=== PATIENT | male | born 1960 | race Caucasian/White ===

== ENCOUNTER 2019-07-31 21:10 | Emergency (ER) | payer BC ==
[2019-07-31] MEDS: Sodium Chloride 0.9% 10 ML Syringe FLUSH PRN ×3 (21:50→23:09)
[2019-07-31] MEDS ORDERED: Ondansetron 4 MG/2 ML SDV IVPUSH ONE (21:55)
[2019-07-31] MEDS ORDERED: fentaNYL 100 MCG/2 ML SDV IVPUSH ONE (21:55)
[2019-07-31 22:02] LABS: CHLORIDE,CL 103 mmol/L (98-107); SODIUM,NA 137 mmol/L (136-145)
[2019-07-31] MEDS ORDERED: methylPREDNISolone Sodium Succinate 125 MG/2 ML SDV IVPUSH ONE (22:30)
[2019-07-31] MEDS ORDERED: Ketorolac 30 MG/ML SDV IVPUSH ONE (22:31)
[2019-07-31] MEDS ORDERED: HYDROmorphone 1 MG/ML Syringe IVPUSH ONE (22:37)
--- NOTE | 2019-07-31 22:38 | EDM.PDOC ---
ED HPI GENERAL MEDICAL PROBLEM - General Chief Complaint: General Stated Complaint: CHEST WALL PAIN Time Seen by Provider: 07/31/19 21:43 Source of Information: Reports: Patient History Limitations: Reports: No Limitations - History of Present Illness INITIAL COMMENTS - FREE TEXT/NARRATIVE: Patient comes to ER with initial complaint of anterior chest wall pain just lateral to sternum on left that started suddenly while he was working on a tractor changing oil. Pain is 8/10. No history of similar pain. Denies injuries/popping sound. Shortly after arrival told nurse that he noticed increasing back pain in thoracic region. He says that he has been having issues with thoracic back pain for some time (months) without history of specific injury in same area. This feels worse than it has before. No other accompanying symptoms. Breathing makes pain worse as does movement/turning head. Denies feeling SOB however. No recent illnesses. Heent negative for acute changes/URI complaints/headache Resp negative for cough/wheeze/sob/sputum production CV+ for complaint of chest pain adjacent to left sternal border/focused discomfort. No palpitations/sweating/nausea GI negative for N/V bowel changes/abdominal pain MS negative for low back pain/limb pain/neck pain. Has the mid thoracic pain and anterior chest discomfort as described above. Neuro negative for focal weakness/acute changes/gait disturbance. Left Anterior Chest Pain Score (Numeric/FACES): 8 - Related Data Allergies Allergy/AdvReac Type Severity Reaction Status Date / Time acetaminophen [From NyQuil] Allergy hives,nause Verified 07/31/19 21:59 a/vomiting codeine Allergy Nausea and Verified 07/31/19 21:59 Vomiting dextromethorphan Allergy hives,nause Verified 07/31/19 21:59 [From NyQuil] a/vomiting doxylamine [From NyQuil] Allergy hives,nause Verified 07/31/19 21:59 a/vomiting pseudoephedrine [From NyQuil] Allergy hives,nause Verified 07/31/19 21:59 a/vomiting Home Meds: Home Meds Cetirizine [ZyrTEC] 10 mg PO DAILY 03/29/16 [History] Omeprazole Magnesium [Prilosec Otc] 20 mg PO DAILY 03/29/16 [History] diazePAM [Valium] 5 mg PO BEDTIME PRN #5 tab 07/31/19 [Rx] predniSONE 20 mg PO WITHBREAKFAST #5 tab 07/31/19 [Rx] Past Medical History HEENT History: Reports: Allergic Rhinitis Respiratory History: Reports: COPD, Other (See Below) Other Respiratory History: COPD by chest x-ray Gastrointestinal History: Reports: GERD, PUD. Denies: Gastritis, GI Bleed, Hiatal Hernia Musculoskeletal History: Reports: Back Pain, Chronic, Osteoarthritis, Other ( See Below) Other Musculoskeletal History: Scoliosis-mild Dermatologic History: Reports: Eczema - Past Surgical History GI Surgical History: Reports: Appendectomy, Other (See Below) Musculoskeletal Surgical History: Reports: Shoulder Surgery, Other (See Below) Dermatological Surgical History: Reports: Other (See Below) - Past Imaging History Past Imaging History: Reports: CAT Scan, MRI, Ultrasound Social & Family History - Caffeine Use Caffeine Use: Reports: Soda (2 sodas per day). Denies: Coffee, Energy Drinks, Tea - Alcohol Use Alcohol Use History: Yes Alcohol Use in Last Twelve Months: Yes Alcohol Use Frequency: Daily (two whiskeys on most days) - Living Situation & Occupation Occupation: Employed ED ROS GENERAL - Review of Systems Review Of Systems: Comprehensive ROS is negative, except as noted in HPI. ED EXAM, GENERAL - Physical Exam Exam: See Below Exam Limited By: No Limitations General Appearance: Alert, WD/WN, Moderate Distress Eye Exam: Bilateral Eye: EOMI, PERRL Ears: Normal External Exam, Hearing Grossly Normal Nose: No: Nasal Deformity, Nasal Swelling, Nasal Drainage Throat/Mouth: Normal Lips, Normal Voice, No Airway Compromise Head: Atraumatic, Normocephalic Neck: Normal Inspection, Supple, Non-Tender, Full Range of Motion. No: Tender Lateral, Tender Midline Respiratory/Chest: No Respiratory Distress, Lungs Clear, Normal Breath Sounds, No Accessory Muscle Use, Other (tender with palpation focally just lateral to upper left sternal border/reproduces patient's pain complaint. ) Cardiovascular: Normal Peripheral Pulses, Regular Rate, Rhythm, No Murmur Peripheral Pulses: 2+: Radial (L), Radial (R) GI/Abdominal: Normal Bowel Sounds, Soft, Non-Tender, No Distention (Male) Exam: Deferred Rectal (Males) Exam: Deferred Back Exam: Other (Tender with palpation in area of mid thoracic spine/ reproduces patient's pain complaint. Nontender elswere on back. ). No: Muscle Spasm Extremities: Normal Inspection, Normal Range of Motion, Non-Tender, No Pedal Edema, Normal Capillary Refill Neurological: Alert, Oriented, Normal Cognition, Normal Gait, No Motor/Sensory Deficits Psychiatric: Normal Affect, Normal Mood Skin Exam: Warm, Dry, Intact, Normal Color EKG INTERPRETATION EKG Date: 07/31/19 Time: 21:30 Rhythm: NSR Rate (Beats/Min): 64 [place]: Normal P-Wave: Present QRS: Normal ST-T: Normal QT: Normal Comparison: NA - No Prior EKG Course - Vital Signs Last Recorded V/S: Last Vital Signs Temp 37.1 C 07/31/19 21:11 Pulse 71 07/31/19 23:10 Resp 14 07/31/19 23:10 BP 146/97 H 07/31/19 23:10 Pulse Ox 98 07/31/19 23:10 - Orders/Labs/Meds Orders: Active Orders 24 hr Category Date Time Status Cardiac Monitoring [RC] . DIRECTED Care 07/31/19 21:41 Active EKG Documentation Completion [RC] ASDIRECTED Care 07/31/19 21:34 Active CXR [Chest 2V] [CR] Stat Exams 07/31/19 21:34 Ordered Sodium Chloride 0.9% [Saline Flush] Med 07/31/19 21:41 Active 10 ml FLUSH ASDIRECTED PRN diazePAM [Valium] Med 07/31/19 23:19 Once 5 mg PO ONETIME ONE Saline Lock Insert [OM.PC] Routine Oth 07/31/19 21:41 Ordered Medication Orders Sodium Chloride (Saline Flush) 10 ml FLUSH ASDIRECTED PRN PRN Reason: Keep Vein Open Last Admin: 07/31/19 23:09 Dose: 10 ml Admin: 07/31/19 22:51 Dose: 10 ml Admin: 07/31/19 21:50 Dose: 10 ml Labs: Laboratory Tests 07/31/19 07/31/19 07/31/19 Range/Units 21:30 21:30 21:30 WBC 10.3 H (4.0-10.2) K/uL RBC 4.65 (4.33-5.41) M/uL Hgb 15.1 (13.1-16.8) g/dL Hct 43.5 (39.0-49.0) % MCV 93.5 (84.0-98.0) fL MCH 32.5 (28.2-33.3) pg MCHC 34.7 (31.7-36.0) g/dL RDW 11.9 (11.2-14.1) % Plt Count 190 (150-350) K/uL Neut % (Auto) 58.7 (45.0-80.0) % Lymph % (Auto) 29.2 (10.0-50.0) % [place] % (Auto) 9.2 (2.0-14.0) % Eos % (Auto) 2.6 (0.0-5.0) % Baso % (Auto) 0.3 (0.0-2.0) % Neut # (Auto) 6.07 (1.40-7.00) K/uL Lymph # (Auto) 3.02 (0.50-3.50) K/uL [place] # (Auto) 0.95 (0.00-1.00) K/uL Eos # (Auto) 0.27 (0.00-0.50) K/uL Baso # (Auto) 0.03 (0.00-0.20) K/uL D-Dimer, Quantitative < 100 (0-400) ng/mL Sodium 137 (136-145) mmol/L Potassium 4.1 (3.5-5.1) mmol/L Chloride 103 (98-107) mmol/L Carbon Dioxide 26.9 (21.0-32.0) mmol/L BUN 15 (7-18) mg/dL Creatinine 0.95 (0.51-1.17) mg/dL Est Cr Clr Drug Dosing 91.89 mL/min Estimated GFR (MDRD) > 60 mL/min Glucose 96 (74-106) mg/dL Calcium 8.9 (8.5-10.1) mg/dL Magnesium 2.0 (1.8-2.4) mg/dL Total Bilirubin 1.3 H (0.2-1.0) mg/dL AST 38 H (15-37) U/L ALT 55 (12-78) U/L Alkaline Phosphatase 65 (46-116) IU/L Troponin I 0.002 (0.000-0.056) ng/mL Total Protein 7.9 (6.4-8.2) g/dL Albumin 4.0 (3.4-5.0) g/dL Meds: Medications Generic Name Dose Route Start Last Admin Trade Name Freq PRN Reason Stop Dose Admin Sodium Chloride 10 ml 07/31/19 21:41 07/31/19 23:09 Saline Flush FLUSH 10 ml ASDIRECTED PRN Administration Keep Vein Open Discontinued Medications Generic Name Dose Route Start Last Admin Trade Name Poliq PRN Reason Stop Dose Admin Fentanyl 100 mcg 07/31/19 21:55 07/31/19 22:04 Sublimaze IVPUSH 07/31/19 21:56 100 mcg ONETIME ONE Administration Hydromorphone HCl 1 mg 07/31/19 22:37 07/31/19 22:57 Dilaudid IVPUSH 07/31/19 22:38 1 mg ONETIME ONE Administration Ketorolac Tromethamine 30 mg 07/31/19 22:31 07/31/19 22:38 Toradol IVPUSH 07/31/19 22:32 30 mg ONETIME ONE Administration Methylprednisolone Sodium Succinate 125 mg 07/31/19 22:30 07/31/19 22:39 Solu-Medrol IVPUSH 07/31/19 22:31 125 mg ONETIME ONE Administration Metoprolol Tartrate 25 mg 07/31/19 23:03 07/31/19 23:09 Lopressor PO 07/31/19 23:04 25 mg ONETIME ONE Administration Ondansetron HCl 4 mg 07/31/19 21:55 07/31/19 22:02 Zofran IVPUSH 07/31/19 21:56 4 mg ONETIME ONE Administration - Radiology Interpretation Free Text/Narrative:: Chest xray overall unremarkable for acute changes/mediastinal widening/ pneumothorax/pneumonia Pending formal Radiology review. - Re-Assessments/Exams Free Text/Narrative Re-Assessment/Exam: 07/31/19 22:50 Basic labs/xray/EKG requested. AST mildly increased at 38, bili 1.3 WBC minimally elevated, likely due to pain response. Troponin/DDimer negative. BP elevated, suspect secondary to pain/discomfort/anxiety Given history of ongoing back pain over the last months that became worse tonight, and reproducibility of pain on exam/exam findings, suspect pain is musculo-skeletal in nature. Differential for chest pain, which includes dissecting aneurism/other leaks/PE/infections/musculoskeletal issues discussed with patient. He is not interested in any additional scanning/tests this evening. He would rather try to give things time to improve and follow up with primary provider. Fentanyl given with minimal improvement. Toradol later added, along with SoluMedrol and Dilaudid. His will be driving him home. Extensive precautions reviewed. To follow up with Melissa regarding the pain and may need to consider MRI imaging to better investigate nerves/spine of thoracic area. He is to return to the ER as needed if further problems develop or can't control pain at home. Patient agreeable with plan. 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 Recommend Flexeril only at night. Departure - Departure Time of Disposition: 23:30 Disposition: Home, Self-Care 01 Condition: Good Clinical Impression: Sternal pain, Elevated blood pressure reading Acute thoracic back pain Qualifiers: Back pain laterality: left Qualified Code(s): M54.6 - Pain in thoracic spine - Discharge Information *COPY OF PRESCRIPTION DRUG MONITORING REPORT IN PATIENT ANGELA: Not Applicable Prescriptions: diazePAM [Valium] 5 mg PO BEDTIME PRN #5 tab PRN Reason: Spasms predniSONE 20 mg PO WITHBREAKFAST #5 tab Instructions: Chest Wall Pain, [id number], Thoracic Strain, [id number], Ketorolac tablets Referrals: Melissa Arvizu PA [Primary Care Provider] - Forms: ED Department Discharge Additional Instructions: Take the Toradol pills one every 4-6 hours as needed. occup ther Prednisone and muscle relaxant tomorrow. Take muscle relaxer before bed and not during day to avoid daytime sleepiness. OK to take Tylenol with the Toradol pills. OK to take CBD oil pills/liquid with the above meds. Ice sore areas frequently. Make follow up appointment to see Melissa/your clinic or Tuesday for recheck and further planning as needed. Discuss possible MRI of upper back to look at the discs and nerves. Monitor Blood pressure and have re-checked at the clinic. If stronger pain medication is needed/work restrictions needed follow up with your primary provider. Return to the ER if you have sudden worsening problems. Sepsis Event Note - Evaluation Sepsis Screening Result: No Definite Risk - Focused Exam Vital Signs: Vital Signs Temp Pulse Pulse Resp BP BP BP 07/31/19 23:10 71 14 146/97 H 07/31/19 23:09 66 146/97 H 07/31/19 22:55 66 14 162/100 H 07/31/19 22:24 71 16 165/103 H 07/31/19 22:05 68 16 168/99 H 07/31/19 21:54 67 18 156/98 H 07/31/19 21:53 64 18 154/96 H 07/31/19 21:20 65 18 171/104 H 07/31/19 21:15 69 16 163/104 H 07/31/19 21:11 37.1 C 72 16 173/98 H Pulse Ox 07/31/19 23:10 98 07/31/19 23:09 07/31/19 22:55 98 07/31/19 22:24 97 07/31/19 22:05 96 07/31/19 21:54 97 07/31/19 21:53 98 07/31/19 21:20 99 07/31/19 21:15 99 07/31/19 21:11 99 Date Exam was Performed: 07/31/19 Time Exam was Performed: 23:20 - My Orders Last 24 Hours: My Active Orders 07/31/19 21:34 EKG Documentation Completion [RC] ASDIRECTED CXR [Chest 2V] [CR] Stat 07/31/19 21:41 Cardiac Monitoring [RC] . DIRECTED Sodium Chloride 0.9% [Saline Flush] 10 ml FLUSH ASDIRECTED PRN Saline Lock Insert [OM.PC] Routine 07/31/19 23:19 diazePAM [Valium] 5 mg PO ONETIME ONE - Assessment/Plan Last 24 Hours: My Active Orders 07/31/19 21:34 EKG Documentation Completion [RC] ASDIRECTED CXR [Chest 2V] [CR] Stat 07/31/19 21:41 Cardiac Monitoring [RC] . DIRECTED Sodium Chloride 0.9% [Saline Flush] 10 ml FLUSH ASDIRECTED PRN Saline Lock Insert [OM.PC] Routine 07/31/19 23:19 diazePAM [Valium] 5 mg PO ONETIME ONE
[2019-07-31] MEDS ORDERED: Metoprolol Tartrate 25 MG Tab PO ONE (23:03)
[2019-07-31 23:10] VITALS: BP 146/97
[2019-07-31 23:12] VITALS: PULSE 71
[2019-07-31] MEDS ORDERED: Diazepam 5 MG Tab PO ONE (23:19)
== END 2019-07-31 23:42 | disposition home or self-care (01) ==
LOC: LL.ED 21:10
DX: R07.9 Chest pain, unspecified (principal); M54.6 Pain in thoracic spine; J44.9 Chronic obstructive pulmonary disease, unspecified; K21.9 Gastro-esophageal reflux disease without esophagitis; M19.90 Unspecified osteoarthritis, unspecified site; Z88.5 Allergy status to narcotic agent; Z88.6 Allergy status to analgesic agent; Z88.8 Allergy status to other drugs, medicaments and biological substances; Z79.899 Other long term (current) drug therapy
CPT/HCPCS: 36415; 71046; 80053; 83735; 84484; 85025; 85379; 93005; 96374; 96375; 99285-25; A9270-GY; J1170; J1885; J2405; J2930; J3010